=== PATIENT | female | born 1940 | race Caucasian/White ===

== ENCOUNTER 2018-11-03 11:28 | Day surgery (SDC) | payer MEDICARE ==
[~2018-11-03 11:28] MED LIST: IOPIDINE ONE; MYDRIACYL ONE; NEOFRIN ONE
[2018-11-03] MEDS ORDERED: IOPIDINE OS ONE (11:46)
[2018-11-03] MEDS ORDERED: NEOFRIN OS ONE (11:46)
[2018-11-03] MEDS ORDERED: MYDRIACYL OS ONE (11:46)
[2018-11-03 14:40] VITALS: BP 137/63
== END 2018-11-03 11:29 | disposition home or self-care (01) ==
LOC: OR 11:28
PROVIDERS: ATTEND Specialist
DX: H26.492 Other secondary cataract, left eye (principal); I10 Essential (primary) hypertension; Z87.891 Personal history of nicotine dependence; Z79.82 Long term (current) use of aspirin; Z79.899 Other long term (current) drug therapy; Z98.41 Cataract extraction status, right eye; Z98.42 Cataract extraction status, left eye; Z98.890 Other specified postprocedural states; Z86.73 Personal history of transient ischemic attack (TIA), and cerebral infarction without residual deficits